=== PATIENT | female | born 1975 | race Caucasian/White ===

== ENCOUNTER → 2021-10-04 11:02 | Outpatient (REF) | payer OTHER, SELFPAY | LOC: ANHLAB 11:02 | PROVIDERS: PCP Family Medicine; Visit Provider Nurse Practitioner | DX: L72.11 Pilar cyst (principal) | CPT/HCPCS: 88304 ==

== ENCOUNTER 2023-08-17 04:52 | Emergency (ER) | payer OTHER, SELFPAY ==
[2023-08-17] VITALS (9 sets, daily range): BP systolic 103–140; BP diastolic 46–97; PULSE 83–126; RESP 15–23; TEMP 37.2; O2SAT 97–100
--- NOTE | ~2023-08-17 | CT_ITS ---
EXAMINATION: CT brain wo con DATE: 08/17/2023 05:23 INDICATION: Seizure. TECHNIQUE: Computed tomography (CT) of the head was performed without intravenous contrast. The mA wa s adjusted according to patient size. Iterative reconstruction technique was employed. The dose-lengt h product was 605.33 mGy-cm. COMPARISON: None FINDINGS: There is a 2.1 cm mass in left frontal lobe with surrounding vasogenic edema. There is no a cute ischemic infarct or intracranial hemorrhage. The ventricles are normal in size. The paranasal si nuses are clear. The mastoid air cells are normal. The orbits are normal. IMPRESSION: 1. 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 Brain MR I without and with contrast is recommended. Reviewed, dictated and finalized at location E. IMPRESSION: 1. 2.1 cm mass in left frontal lobe, consistent with glioblastoma versus metast atic disease. Brain MRI without and with contrast is recommended.
--- NOTE | 2023-08-17 04:53 | ECG_ITS ---
Measurements Intervals [place] Rate: 116 P: TX: 0 QRS: 32 QRSD: 106 T: 48 QT: 334 QTc: 465 Interpretive Statements SINUS TACHYCARDIA BORDERLINE AV CONDUCTION DELAY INCOMPLETE RIGHT BUNDLE BRANCH BLOCK BASELINE ARTIFACT- I, V1 ABNORMAL ECG NO PREVIOUS ECG AVAILABLE FOR COMPARISON Electronically Signed On 08-17-2023 7:54:48 CDT by Lopez Garner D.O.
--- NOTE | 2023-08-17 04:59 | ED.SEIZURE ---
HPI - Seizure General Chief Complaint: Seizure Stated Complaint: seizure Time Seen by Provider: 08/17/23 04:52 History of Present Illness HPI Narrative: Patient is a healthy 48 year old female with no significant medical history here with seizure. Per , patient was complaining of not feeling like herself throughout the day yesterday. Overnight around 4 am she woke her by yelling his name. He notes that he woke up to her with her head cocked to the right and she was spinning around in a [place]. He was able to redirect her to lay down in the bed and he called EMS. On EMS arrival, she had a witnessed tonic clonic seizure like activity that lasted about 30 seconds and self aborted without medication. EMS noted she was a bit erratic en route and behaving post ictal. IV was lost en route due to this. denies trauma. Denies infectious symptoms. No history per patient due to being confused and post ictal. Related Data Home Medications Medication Instructions Recorded Confirmed No Home Medications 08/23/21 08/23/21 Allergies Allergy/AdvReac Type Severity Reaction Status Date / Time Penicillins Allergy Unknown Rash Verified 08/17/23 05:01 diphenhydramine AdvReac Other Verified 08/17/23 05:01 [From Benadryl] Review of Systems Review of Systems: ROS unobtainable: Yes unobtainable due to mental status [facility] Surgical History Surgical History History of appendectomy 1981 Social History Social History Smoking status: Never smoker Alcohol intake: current Substance use: never Substance use type: does not use Exam Narrative: GENERAL: Well-appearing, well-nourished, and in no acute distress. HEAD: Normocephalic, atraumatic. EYES: PERRLA and EOMI. Eyes track across midline. ENT: Nares clear. Mucous membranes moist. NECK: Supple. CHEST: Clear to auscultation. No respiratory distress. HEART: Tachycardic. Normal peripheral pulses. ABDOMEN: Soft, nontender, nondistended. EXTREMITIES: Normal range of motion. No edema. SKIN: Warm, dry, no rash. NEURO: Moving upper and lower extremities equally, follows simple commands, postictal appearing Course Course Emergency Course: Patient seen and evaluated on EMS arrival. Patient is awake, confused and appears to be post ictal. She cannot provide history. Per EMS they witnessed about 30 seconds of generalized tonic, clonic activity which resolved without intervention. Will do workup for first time seizure with lab work, CT head, seizure precautions. Only prior visits in our system on chart review are from a plastic surgery clinic where she was being seen for a scalp mass. Lab work and imaging reviewed. WBC 12.1, electrolytes grossly normal. Troponin normal. negative. COVID/influenza/rsv negative. ETOH negative. CT shows brain mass in frontal lobe with surrounding vasogenic edema. Patient and updated on results. Patient works in the [facility] system, would prefer [facility] transfer. Spoke with Dr. Horowitz of [facility] neurosurgery. No steroids at this time. Accepting physician Dr. Reyna. If patient boarding for a while here recommends MRI w/wo contrast. Family updated on plan of care. Patient transferred to [facility] via EMS. Vital Signs Vital signs: Vital Signs Temperature 99 F 08/17/23 04:48 Pulse Rate 126 H 08/17/23 04:48 Respiratory Rate 15 08/17/23 04:48 Blood Pressure 140/78 08/17/23 04:48 Pulse Oximetry 100 08/17/23 04:48 Oxygen Delivery Room Air 08/17/23 04:48 Temperature 99 F 08/17/23 04:48 Pulse Rate 98 08/17/23 10:43 Respiratory Rate 16 08/17/23 10:43 Blood Pressure 103/51 L 08/17/23 10:43 Pulse Oximetry 97 08/17/23 10:43 Oxygen Delivery Room Air 08/17/23 04:48 MDM - Seizure Lab Data 08/17/23 05:02 08/17/23 05:02 Labs: Lab Results 08/17/23
[2023-08-17 05:00] LABS: Glucose Point of Care 147 mg/dl (65-105)
[2023-08-17 05:07] LABS: Basophils Absolute Auto 0.1 K/mm3 (0.0-0.1); Basophils Percent Auto 0.9 % (0.2-1.2); Eosinophils Absolute Auto 0.1 K/mm3 (0-0.3); Eosinophils Percent Auto 0.9 % (0-4.4); Hematocrit 41.2 % (37.0-47.0); Hemoglobin 13.7 g/dL (12.0-15.0); Immature Granulocyte Absolute 0.07 K/mm3 (0.00-0.031); Immature Granulocyte Percent A 0.6 % (0-0.5); Lymphocytes Absolute Auto 3.47 K/mm3 (0.9-3.2); Lymphocytes Percent Auto 28.7 % (18.3-44.2); Mean Corpuscular HGB Conc 33.3 g/dl (32-36); Mean Corpuscular Hemoglobin 30.9 pg (26-34); Mean Platelet Volume 10.3 fl (7.4-10.4); Monocytes Percent Auto 8.4 % (2.6-8.5); Neutrophils Absolute Auto 7.3 K/mm3 (1.3-6.7); Neutrophils Percent Auto 60.5 % (45.5-73.1); Platelet Count Result 234 k/mm3 (150-375); Red Blood Count 4.43 M/mm3 (4.2-5.4); Red Cell Distribution Width 12.2 % (11.5-14.5); White Blood Count 12.1 K/mm3 (4.5-10.0)
[2023-08-17] MEDS: SODIUM CHLORIDE 0.9% IV 1,000 ML 999 ML IV CONT (05:08)
[2023-08-17 05:16] LABS: Ethanol < 10 mg/dL (<10)
[2023-08-17 05:18] LABS: Alanine Aminotransferase 21 U/L (6-35); Albumin Level 4.4 g/dL (3.5-5.1); Alkaline Phosphatase 63 U/L (38-126); Anion Gap 18 mmol/L (8-16); Aspartate Amino Transferase 27 U/L (14-36); Bilirubin,Total 0.5 mg/dL (0.2-1.3); Blood Urea Nitrogen 21 mg/dL (7-17); Calcium 8.6 mg/dL (8.4-10.2); Carbon Dioxide 16 mmol/L (22-30); Chloride 103 mmol/L (98-107); Estimated CRCL calculation 68 ml/min; Estimated Glomerular Filt Rate 53; Glucose 170 mg/dL (65-110); Magnesium 1.9 mg/dL (1.6-2.3); Potassium 3.2 mmol/L (3.4-5.0); Sodium 137 mmol/L (137-145)
[2023-08-17 05:30] LABS: Troponin I < 0.012 ng/mL (0.000-0.034)
[2023-08-17 05:49] LABS: SPREG INTERNAL CONTROL Positive; Serum Qual hCG Negative
[2023-08-17 05:54] LABS: Influenza A QL RT-PCR Negative (Negative); Influenza B QL RT-PCR Negative (Negative); RSV RNA, RT-PCR Negative (Negative); SARS-CoV-2 RNA PCR Negative (Negative)
--- NOTE | 2023-08-17 06:04 | PC.NURSE ---
Dianna CANSECO can reached at [phone]
--- NOTE | 2023-08-17 06:05 | PC.NURSE ---
[facility] consulted; advised this RN that the patient has been added to the waitlist and the wait is currently a few days.
== END 2023-08-17 11:25 | disposition short-term general hospital (02) ==
PROVIDERS: Emergency Provider Student in an Organized Health Care Education/Training Program; PCP Family Medicine
DX: R56.9 Unspecified convulsions (principal); G93.89 Other specified disorders of brain; Z11.52 Encounter for screening for COVID-19
CPT/HCPCS: 36415; 70450; 80053; 80307; 82948; 83735; 84484; 84703; 85025; 87637; 93005; 96361; 96365; 99285; J1953; J7030